=== PATIENT | female | born 1980 | race Caucasian/White ===

== ENCOUNTER 2017-02-27 02:33 | Emergency (ER) | payer MEDICAID, OTHER ==
[~2017-02-27] VITALS: Ht 162.6 cm; Wt 67.5 kg
[~2017-02-27 02:33] MED LIST: AMLO10TA2 PO; AZIT500T2 PO; DESOTAB7 PO; PARO40TA2 PO; TRIA.1%T TOPICAL; VALS1TAB64 PO
[2017-02-27 02:46] VITALS: BP 188/109; PULSE 85; RESP 14; TEMP 98.6; O2SAT 99
[2017-02-27] MEDS ORDERED: ZOFR4TAB PO (02:55)
[2017-02-27] MEDS ORDERED: OMEP10CA PO (02:55)
[2017-02-27 03:16] VITALS: BP 197/112; PULSE 79; RESP 18; O2SAT 99
[2017-02-27] MEDS ORDERED: ORPHENADRINE INJ 60 MG/2 ML AMP IM ONE (03:45)
[2017-02-27] MEDS ORDERED: KETOROLAC TROMETHAMINE 60 MG/2 ML (IM) VIAL IM ONE (03:45)
[2017-02-27] MEDS ORDERED: NAPR-697 PO (03:53)
[2017-02-27] MEDS ORDERED: BACL20TA PO (03:53)
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
[2017-02-27] MEDS ORDERED: cloNIDine HCL 0.1 MG TAB PO ONE ×2 (04:15→05:00)
[2017-02-27 04:16] VITALS: BP 195/118; PULSE 78; RESP 18; O2SAT 100
[2017-02-27 04:46] VITALS: BP 209/120; PULSE 74; RESP 18; O2SAT 100
[2017-02-27 05:22] VITALS: RESP 18
[2017-02-27 05:24] VITALS: BP 167/108
[2017-03-02] MEDS ORDERED: LISI-519 PO (08:34)
[2017-03-05] MEDS ORDERED: HYDR25TA5 PO (09:06)
[2017-03-05] MEDS ORDERED: PANT40TA3 PO (09:16)
== END 2017-02-27 05:33 | disposition home or self-care (01) ==
LOC: PHED 02:33
DX: M62.838 Other muscle spasm (principal); I10 Essential (primary) hypertension
CPT/HCPCS: 96374; 96375; 99284; J1885; J2360